=== PATIENT | male | born 1985 | race Caucasian/White ===

== ENCOUNTER 2016-08-09 16:13 | Emergency (ER) | payer MEDICARE, MEDICAID ==
[~2016-08-09] VITALS: Ht 180.3 cm; Wt 60.5 kg
[~2016-08-09 16:13] MED LIST: ABILIFY5 MG PO; ALEVE 220MG220 MG PO; AMOXICILLIN 50500 MG PO; ATARAX 25MG25 MG/TAB PO; ATARAX50 MG PO; BUSPAR5 MG PO; CAMPRAL333 MG PO; CLEOCIN HC150 MG/CAP PO; DESYREL 100MG100 MG PO; ESKALITH300 MG PO; HALDOL 5MG T5 MG/TAB PO; INDERAL 20MG20 MG PO; INTUNIV1 MG; LAMICTAL200 MG PO; LIBRIUM 25M25 MG/CAP PO; LITHIUM CARBON300 MG PO; MOTRIN 800800 MG/TAB PO; NAPROSYN500 MG PO; NEURONTIN400 MG/CAP PO; NEXIUM 20MG20 MG PO; NORCO 325 MG-51 TAB PO; PEN-VEE K500 MG PO; PERCOCET 325 MG1 TA2 PO; PERIDEX (CHLOR480 ML MM; PROZAC40 MG PO; REVIA 50MG TABL50 MG PO; SEROQUEL 1100 MG/TAB PO; SEROQUEL50 MG PO; STRATTERA 25MG25 MG PO; ZOFRAN 4MG T4 MG/TAB PO; vibryd
[2016-08-09 16:18] VITALS: BP 124/89; TEMP 98.3
[2016-08-09] MEDS ORDERED: DESYREL 50MG50 MG PO (16:32)
[2016-08-09] MEDS ORDERED: AMOXICILLIN 50500 MG PO (16:54)
[2016-08-09 16:57] VITALS: PULSE 80
== END 2016-08-09 16:57 | disposition home or self-care (01) ==
LOC: COL.ER 16:13
DX: K08.89 Other specified disorders of teeth and supporting structures (principal); F17.210 Nicotine dependence, cigarettes, uncomplicated

== ENCOUNTER 2016-08-10 12:14 | Emergency (ER) | payer MEDICARE, MEDICAID ==
[~2016-08-10] VITALS: Ht 180.3 cm; Wt 60.5 kg
[~2016-08-10 12:14] MED LIST changes: +DESYREL 50MG50 MG PO
[2016-08-10 12:16] VITALS: TEMP 98.3
[2016-08-10 12:52] LABS: BASO # 0.1 (0.0-0.2); BASO % 0.9 % (0.0-2.0); EOS % 0.7 % (0-4.0); GRAN # 3.6 (1.4-6.5); GRAN % 64.9 % (42.2-75.2); HEMATOCRIT 41.9 % (42.0-52.0); HEMOGLOBIN 13.7 g/dl (13.5-18.0); LYMPH # 1.5 (1.2-3.4); LYMPH % 27.5 % (20.0-51.0); MEAN CELL VOLUME 92 fl (80.0-100.0); MEAN CORPUSCULAR HEMOGLOBIN 30 pg (27.0-31.0); MEAN CORPUSCULAR HGB CONC 33 g/dl (33.0-37.0); MEAN PLATELET VOLUME 8.8 fl (7.4-10.4); MONO # 0.3 (0.1-0.6); MONO % 5.6 % (1.7-9.3); PLATELET COUNT 275 K/mm3 (130-400); RED BLOOD COUNT 4.57 M/mm3 (4.20-5.60); REDCELL DISTRIBUTION WIDTH-CV 13.9 % (11.5-14.5); WHITE BLOOD COUNT 5.5 K/mm3 (4.8-10.8)
[2016-08-10 13:12] LABS: PH 7 (5-8); SQUAMOUS EPITHELIAL None Seen /hpf; URINE APPEARANCE Cloudy; URINE BACTERIA None Seen /hpf; URINE BILIRUBIN Negative (NEGATIVE); URINE BLOOD Negative (NEGATIVE); URINE COLOR Yellow; URINE GLUCOSE Negative (NEGATIVE); URINE KETONE Negative (NEGATIVE); URINE RBC 0-2 /hpf; URINE UROBILINOGEN Negative (NEGATIVE); URINE WBC None Seen /hpf
[2016-08-10 13:13] LABS: ADJUSTED CALCIUM 9.4 mg/dL (8.4-10.2); ALANINE AMINOTRANSFERASE 56 U/L (21-72); ALKALINE PHOSPHATASE 100 U/L (50-136); ANION GAP 11 mmol/L (7-16); BILIRUBIN,TOTAL 0.7 mg/dL (0.0-1.0); BLOOD UREA NITROGEN 16 mg/dL (9-20); CALCIUM 9.4 mg/dL (8.4-10.2); CARBON DIOXIDE 26 mmol/L (22-30); CHLORIDE 102 mmol/L (98-107); GLUCOSE 96 mg/dL (74-106); POTASSIUM 3.9 mmol/L (3.4-5.0); SODIUM 138 mmol/L (137-145); TOTAL PROTEIN 7.2 gm/dL (6.4-8.2)
[2016-08-10 13:27] LABS: ACETAMINOPHEN < 10 ug/mL (10-30); SALICYLATE < 1.0 mg/dL
[2016-08-10 13:30] LABS: AMPHETAMINE URINE NEGATIVE; BARBITURATES URINE NEGATIVE; BENZODIAZEPINES URINE POSITIVE; BUPRENORPHINE URINE NEGATIVE; METHADONE URINE NEGATIVE; OPIATES URINE NEGATIVE; OXYCODONE URINE NEGATIVE; PHENCYCLIDINE URINE NEGATIVE; PROPOXYPHENE URINE NEGATIVE; THC CANNABINOIDS URINE NEGATIVE
[2016-08-10 17:43] VITALS: BP 106/65; PULSE 54
== END 2016-08-10 20:00 ==
LOC: COL.ER 12:14
PROVIDERS: Emergency Medicine
DX: F33.2 Major depressive disorder, recurrent severe without psychotic features (principal); R45.851 Suicidal ideations

== ENCOUNTER 2017-07-14 18:40 | Emergency (ER) | payer MEDICARE, MEDICAID ==
[~2017-07-14] VITALS: Ht 180.3 cm; Wt 75.9 kg
[2017-07-14 18:56] VITALS: BP 141/100; TEMP 97.1
[2017-07-14 20:36] VITALS: PULSE 86
== END 2017-07-14 20:37 | disposition home or self-care (01) ==
LOC: COL.ER 18:40
DX: S93.402A Sprain of unspecified ligament of left ankle, initial encounter (principal); X50.0XXA Overexertion from strenuous movement or load, initial encounter; Y92.009 Unspecified place in unspecified non-institutional (private) residence as the place of occurrence of the external cause

== ENCOUNTER 2017-07-18 01:13 | Emergency (ER) | payer MEDICARE, MEDICAID ==
[~2017-07-18] VITALS: Ht 180.3 cm; Wt 75.9 kg
[2017-07-18 01:15] VITALS: TEMP 97
[2017-07-18 01:35] LABS: BASO # 0.1 (0.0-0.2); BASO % 1.3 % (0.0-2.0); EOS # 0.2 (0.0-0.7); EOS % 2.4 % (0-4.0); GRAN # 2.7 (1.4-6.5); GRAN % 40.4 % (42.2-75.2); HEMATOCRIT 46.4 % (42.0-52.0); HEMOGLOBIN 15.3 g/dl (13.5-18.0); LYMPH # 3.2 (1.2-3.4); LYMPH % 48.6 % (20.0-51.0); MEAN CELL VOLUME 91 fl (80.0-100.0); MEAN CORPUSCULAR HEMOGLOBIN 30 pg (27.0-31.0); MEAN CORPUSCULAR HGB CONC 33 g/dl (33.0-37.0); MONO # 0.5 (0.1-0.6); PLATELET COUNT 374 K/mm3 (130-400); RED BLOOD COUNT 5.12 M/mm3 (4.20-5.60); REDCELL DISTRIBUTION WIDTH-CV 13.8 % (11.5-14.5)
[2017-07-18] MEDS ORDERED: PRILOSEC 20MG20 MG PO (01:37)
[2017-07-18] MEDS ORDERED: LEVOXYL0.025 MG PO (01:37)
[2017-07-18 01:38] LABS: COLLECTION METHOD CLEAN CATCH
[2017-07-18] MEDS ORDERED: PRIL40 PO (01:38)
[2017-07-18] MEDS ORDERED: ZOFRAN 4MG T4 MG/TAB PO (01:39)
[2017-07-18] MEDS ORDERED: SEROQUEL50 MG PO (01:40)
[2017-07-18] MEDS ORDERED: BYSTOLIC5 MG PO (01:41)
[2017-07-18] MEDS ORDERED: LIPITOR 40MG TA40 MG PO (01:41)
[2017-07-18] MEDS ORDERED: LEXAPRO20 MG PO (01:41)
[2017-07-18] MEDS ORDERED: TRILEPTAL 300M300 MG PO (01:41)
[2017-07-18] MEDS ORDERED: NORVASC 5MG5 MG/TAB PO (01:41)
[2017-07-18] MEDS ORDERED: MINIPRESS 1M1 MG/CAP PO (01:42)
[2017-07-18] MEDS ORDERED: FLEXERIL 1010 MG/TAB PO (01:42)
[2017-07-18] MEDS ORDERED: REMERON30 MG PO (01:42)
[2017-07-18] MEDS ORDERED: CYMBALTA 60MG60 MG PO (01:43)
[2017-07-18] MEDS ORDERED: ATARAX 25MG25 MG/TAB PO (01:43)
[2017-07-18] MEDS ORDERED: NEURONTIN400 MG/CAP PO (01:44)
[2017-07-18 01:46] LABS: AMORPHOUS CRYSTAL Present /uL; MUCOUS Present /lpf; PH 7 (5-8); SQUAMOUS EPITHELIAL None Seen /hpf; URINE APPEARANCE Cloudy; URINE BACTERIA None Seen /hpf; URINE BILIRUBIN Negative (NEGATIVE); URINE BLOOD Negative (NEGATIVE); URINE COLOR Yellow; URINE GLUCOSE Negative (NEGATIVE); URINE KETONE Negative (NEGATIVE); URINE LEUKOCYTE ESTERASE Negative (NEGATIVE); URINE NITRATE Negative (NEGATIVE); URINE PROTEIN(semi-quant) Negative (NEGATIVE); URINE RBC 0-2 /hpf; URINE UROBILINOGEN Negative (NEGATIVE)
[2017-07-18 01:47] LABS: ACETAMINOPHEN < 10 ug/mL (10-30); ALANINE AMINOTRANSFERASE 30 U/L (21-72); ALBUMIN 4.9 gm/dL (3.5-5.0); ALCOHOL(ethanol),MEDICAL 105 mg/dL; ALKALINE PHOSPHATASE 108 U/L (50-136); ANION GAP 12 mmol/L (7-16); AST,SGOT 44 U/L (15-37); BILIRUBIN,TOTAL 0.2 mg/dL (0.0-1.0); BLOOD UREA NITROGEN 10 mg/dL (9-20); CALCIUM 9.4 mg/dL (8.4-10.2); CARBON DIOXIDE 28 mmol/L (22-30); CHLORIDE 102 mmol/L (98-107); CREATININE, serum 0.89 mg/dL (0.66-1.25); GLUCOSE 87 mg/dL (74-106); MAGNESIUM 2.4 mg/dL (1.6-2.3); PHOSPHOROUS 3.6 mg/dL (2.5-4.5); POTASSIUM 3.9 mmol/L (3.4-5.0); SALICYLATE < 1.0 mg/dL; SODIUM 142 mmol/L (137-145); TOTAL PROTEIN 8.3 gm/dL (6.4-8.2)
[2017-07-18 01:50] LABS: TRICYCLIC ANTIDEPRESS URINE POSITIVE
[2017-07-18 09:00] VITALS: BP 137/92; PULSE 70
== END 2017-07-18 09:05 ==
LOC: COL.ER 01:13
PROVIDERS: Emergency Medicine
DX: F10.129 Alcohol abuse with intoxication, unspecified (principal); R45.851 Suicidal ideations; F32.9 Major depressive disorder, single episode, unspecified; F41.9 Anxiety disorder, unspecified; F12.90 Cannabis use, unspecified, uncomplicated; Y90.5 Blood alcohol level of 100-119 mg/100 ml
CPT/HCPCS: J2060; J3411; J7030

== ENCOUNTER 2017-07-31 22:17 | Emergency (ER) | payer MEDICARE, MEDICAID ==
[~2017-07-31] VITALS: Ht 180.3 cm; Wt 84.5 kg
[~2017-07-31 22:17] MED LIST changes: +BYSTOLIC5 MG PO; +CYMBALTA 60MG60 MG PO; +FLEXERIL 1010 MG/TAB PO; +LEVOXYL0.025 MG PO; +LEXAPRO20 MG PO; +LIPITOR 40MG TA40 MG PO; +MINIPRESS 1M1 MG/CAP PO; +NORVASC 5MG5 MG/TAB PO; +PRIL40 PO; +PRILOSEC 20MG20 MG PO; +REMERON30 MG PO; +TRILEPTAL 300M300 MG PO
[2017-07-31 22:22] VITALS: TEMP 98.4
[2017-07-31 23:00] LABS: COLLECTION METHOD CLEAN CATCH
[2017-07-31 23:08] LABS: BASO # 0.1 (0.0-0.2); BASO % 1.5 % (0.0-2.0); EOS # 0.1 (0.0-0.7); GRAN # 5.7 (1.4-6.5); GRAN % 61.3 % (42.2-75.2); HEMATOCRIT 46.5 % (42.0-52.0); HEMOGLOBIN 15.9 g/dl (13.5-18.0); LYMPH # 2.7 (1.2-3.4); LYMPH % 29.4 % (20.0-51.0); MEAN CELL VOLUME 88 fl (80.0-100.0); MEAN CORPUSCULAR HEMOGLOBIN 30 pg (27.0-31.0); MEAN CORPUSCULAR HGB CONC 34 g/dl (33.0-37.0); MEAN PLATELET VOLUME 8.7 fl (7.4-10.4); MONO # 0.5 (0.1-0.6); MONO % 5.5 % (1.7-9.3); PLATELET COUNT 397 K/mm3 (130-400); RED BLOOD COUNT 5.27 M/mm3 (4.20-5.60); REDCELL DISTRIBUTION WIDTH-CV 13.8 % (11.5-14.5)
[2017-07-31 23:10] LABS: MUCOUS Present /lpf; PH 6 (5-8); SQUAMOUS EPITHELIAL None Seen /hpf; URINE APPEARANCE Clear; URINE BACTERIA None Seen /hpf; URINE BILIRUBIN Negative (NEGATIVE); URINE BLOOD 1+ (NEGATIVE); URINE COLOR Yellow; URINE GLUCOSE Negative (NEGATIVE); URINE KETONE Negative (NEGATIVE); URINE LEUKOCYTE ESTERASE Negative (NEGATIVE); URINE NITRATE Negative (NEGATIVE); URINE PROTEIN(semi-quant) Negative (NEGATIVE); URINE UROBILINOGEN Negative (NEGATIVE)
[2017-07-31 23:20] LABS: TRICYCLIC ANTIDEPRESS URINE NEGATIVE
[2017-07-31 23:22] LABS: ALANINE AMINOTRANSFERASE 40 U/L (21-72); ALBUMIN 4.9 gm/dL (3.5-5.0); ALCOHOL(ethanol),MEDICAL 143 mg/dL; ALKALINE PHOSPHATASE 125 U/L (50-136); ANION GAP 15 mmol/L (7-16); AST,SGOT 46 U/L (15-37); BILIRUBIN,TOTAL 0.4 mg/dL (0.0-1.0); BLOOD UREA NITROGEN 12 mg/dL (9-20); CALCIUM 9.2 mg/dL (8.4-10.2); CARBON DIOXIDE 23 mmol/L (22-30); CHLORIDE 104 mmol/L (98-107); CREATININE, serum 0.79 mg/dL (0.66-1.25); GLUCOSE 110 mg/dL (74-106); POTASSIUM 4.2 mmol/L (3.4-5.0); SODIUM 143 mmol/L (137-145); TOTAL PROTEIN 8.2 gm/dL (6.4-8.2)
[2017-07-31 23:23] LABS: ACETAMINOPHEN < 10 ug/mL (10-30); SALICYLATE < 1.0 mg/dL
[2017-08-01 14:15] VITALS: BP 135/98; PULSE 96
== END 2017-08-01 14:17 ==
LOC: COL.ER 22:17
PROVIDERS: Emergency Medicine
DX: F10.231 Alcohol dependence with withdrawal delirium (principal); R45.851 Suicidal ideations; F12.929 Cannabis use, unspecified with intoxication, unspecified; F17.210 Nicotine dependence, cigarettes, uncomplicated; Y90.6 Blood alcohol level of 120-199 mg/100 ml
CPT/HCPCS: J2060; J2765; J7030